=== PATIENT | female | born 1950 | race Caucasian/White ===

== ENCOUNTER → 2016-09-17 | Outpatient (CLI) | payer MEDICARE, OTHER ==
[~2016-09-17] MED LIST: /TIOT18INH INH; ENTOCORT EC; KLON0.5T OR; KLONOPIN PO; KLOR10TA OR; PAXI40TA OR; POTASSIUM PO; REME15TA OR
--- NOTE | 2016-09-17 11:42 | REP ---
History of tobacco abuse. Comparison standard noncontrast enhanced low dose CT screening of the lungs was obtained. There are no priors for comparison. The lung wells are hyperexpanded. Biapical curvilinear densities are present. Tiny cystic air spaces are seen scattered throughout the lung wells with apical predominance. In the lateral periphery of the right upper lobe, there is a vague 3 mm sized nodular density. There is bilateral basilar cylindrical bronchiectasis. Mild apical cylindrical bronchiectatic change is also suspected. IMPRESSION: 1. Tiny right upper lobe nodule as described above. According to the revised Fleischner Society criteria, this represents a category 2 lesion and one year followup low dose screening CT of the lungs is recommended. 2. There is evidence of emphysematous change and bronchiectasis as described above. Signed by Augustus Zaldivar DO 09/17/2016 11:51 A
== END ==
LOC: M RAD 10:34
PROVIDERS: ATTEND Internal Medicine Pulmonary Disease
DX: J43.2 Centrilobular emphysema (principal); Z87.891 Personal history of nicotine dependence

== ENCOUNTER → 2016-11-06 | Outpatient (REF) | payer MEDICARE, OTHER ==
[2016-11-06 16:30] LABS: CALCIUM OXALATE CRYSTALS SMALL
== END ==
LOC: M LAB REF 16:09
PROVIDERS: ATTEND Nurse Practitioner Family
DX: N39.0 Urinary tract infection, site not specified (principal)

== ENCOUNTER → 2017-08-24 | Outpatient (CLI) | payer MEDICARE, OTHER | LOC: M RAD 09:05 | DX: Z12.2 Encounter for screening for malignant neoplasm of respiratory organs (principal); R91.8 Other nonspecific abnormal finding of lung field; J43.2 Centrilobular emphysema; Z87.891 Personal history of nicotine dependence | CPT/HCPCS: G0297 ==

== ENCOUNTER 2017-11-15 09:00 | Day surgery (SDC) | payer MEDICARE, OTHER ==
[2017-11-15] MEDS: NS 1,000 ML IV (09:14)
[2017-11-15] MEDS ORDERED: fentaNYL 100 MCG/2 ML INJECTION (J3010) As Ordered (09:22)
[2017-11-15] MEDS ORDERED: LIDOCAINE 2% INJ 100 MG/5 ML SDV (FOR ANES.) As Ordered (09:27)
[2017-11-15] MEDS ORDERED: PROPOFOL 200 MG/20 ML VIAL As Ordered (09:27)
== END 2017-11-15 10:49 | disposition home or self-care (01) ==
LOC: M OPP 09:00
DX: R19.7 Diarrhea, unspecified (principal); Z86.010 Personal history of colon polyps; K55.20 Angiodysplasia of colon without hemorrhage; K64.0 First degree hemorrhoids; K57.30 Diverticulosis of large intestine without perforation or abscess without bleeding; R12 Heartburn; K22.8 Other specified diseases of esophagus; K44.9 Diaphragmatic hernia without obstruction or gangrene; K31.7 Polyp of stomach and duodenum; I35.9 Nonrheumatic aortic valve disorder, unspecified; K58.9 Irritable bowel syndrome, unspecified; K62.5 Hemorrhage of anus and rectum; K21.9 Gastro-esophageal reflux disease without esophagitis; D50.9 Iron deficiency anemia, unspecified; R06.02 Shortness of breath; M19.90 Unspecified osteoarthritis, unspecified site; F32.9 Major depressive disorder, single episode, unspecified; Z86.69 Personal history of other diseases of the nervous system and sense organs; J44.9 Chronic obstructive pulmonary disease, unspecified; Z98.1 Arthrodesis status; Z95.2 Presence of prosthetic heart valve; Z87.891 Personal history of nicotine dependence; Z88.5 Allergy status to narcotic agent; Z79.82 Long term (current) use of aspirin; Z79.899 Other long term (current) drug therapy
CPT/HCPCS: 45380

== ENCOUNTER → 2018-02-07 | Outpatient (CLI) | payer MEDICARE, OTHER | LOC: M RAD 09:33 | DX: Z12.2 Encounter for screening for malignant neoplasm of respiratory organs (principal); Z87.891 Personal history of nicotine dependence; J43.2 Centrilobular emphysema; J84.10 Pulmonary fibrosis, unspecified | CPT/HCPCS: G0297 ==

== ENCOUNTER → 2018-07-22 | Outpatient (REF) | payer MEDICARE, OTHER ==
[~2018-07-22] MED LIST changes: +ASPI1TAB PO; +CALC1TAB40 PO; +CALC600T57 PO; +FISH5CAP PO; +KLON0.5T PO; +OMEP40CA2 PO; +PARO30TA PO; +POTA10TA16 PO; +PROAAER10 INH; +PROL60SO SC; +SPIR1CAP INH; +VITA100T20 PO; +VITA500046 PO; +vitamin D IM
== END ==
LOC: M LAB REF 15:17
PROVIDERS: ATTEND Physician Assistant
DX: N39.0 Urinary tract infection, site not specified (principal)

== ENCOUNTER → 2018-11-29 | Outpatient (CLI) | payer MEDICARE, OTHER ==
[~2018-11-29] MED LIST changes: -/TIOT18INH INH; -ASPI1TAB PO; +ASPI81TA26 PO; -VITA100T20 PO; +VITA100T51 PO
[2018-11-29 10:46] LABS: BASO % 0.9 % (0.0-1.0); EOS % 0.9 % (0.0-3.0); HEMATOCRIT 33.7 % (36.0-47.0); HEMOGLOBIN 10.2 g/dl (12.0-15.5); LYMPH # 0.8 10^3/uL (1.5-4.5); LYMPH % 25.8 % (24.0-44.0); MEAN CORPUSCULAR HEMOGLOBIN 26.8 pg (27.0-33.0); MEAN CORPUSCULAR HGB CONC 30.3 g/dl (32.0-36.5); MEAN CORPUSCULAR VOLUME 88.7 fl (80.0-96.0); MONO # 0.3 10^3/uL (0.0-0.8); MONO % 8.5 % (0.0-5.0); NEUTROPHILS % 63.6 % (36.0-66.0); PLATELET COUNT, AUTOMATED 192 10^3/uL (150-450); WHITE BLOOD COUNT 3.2 10^3/uL (4.0-10.0)
[2018-11-29 11:14] LABS: ALBUMIN 3.2 GM/DL (3.2-5.2); BILIRUBIN,TOTAL 0.2 MG/DL (0.2-1.0); CREATININE FOR GFR 1.02 MG/DL (0.55-1.30); GLOMERULAR FILTRATION RATE 57.4 (>45); POTASSIUM SERUM 4.2 MEQ/L (3.5-5.1); TOTAL PROTEIN 6.4 GM/DL (6.4-8.2)
== END ==
LOC: M LAB 10:15
PROVIDERS: ATTEND Family Medicine
DX: D72.819 Decreased white blood cell count, unspecified (principal); D64.9 Anemia, unspecified

== ENCOUNTER → 2019-02-21 | Outpatient (CLI) | payer MEDICARE, OTHER ==
--- NOTE | 2019-02-21 10:54 | REP ---
LOW DOSE LUNG SCREENING CT: Low dose lung screening CT exam is accomplished in the axial plane and compared to prior study of 02/07/2018. Once again there are scattered tiny calcified granulomas bilaterally. No suspicious nodular opacity is seen. There is stable biapical pleural and parenchymal scarring. No infiltrate is seen in either lung. The heart is not enlarged. There is calcification of the thoracic aorta. No mediastinal contour abnormality is seen. IMPRESSION: Stable chronic scarring and tiny bilateral calcified granulomas. Lung-RADS category [address] Recommend followup in 1 year. Electronically Signed by Rodolfo Briggs MD 02/21/2019 07:33 P
== END ==
LOC: M RAD 08:14
PROVIDERS: ATTEND Internal Medicine Pulmonary Disease
DX: F17.210 Nicotine dependence, cigarettes, uncomplicated (principal); R91.8 Other nonspecific abnormal finding of lung field

== ENCOUNTER → 2019-04-01 | Outpatient (REF) | payer MEDICARE, OTHER | LOC: M LAB REF 09:08 | PROVIDERS: ATTEND Physician Assistant | DX: N39.0 Urinary tract infection, site not specified (principal) ==

== ENCOUNTER → 2020-02-14 | Outpatient (CLI) | payer MEDICARE, OTHER ==
[~2020-02-14] MED LIST changes: -OMEP40CA2 PO; +OMEP40CA97 PO; -PARO30TA PO; +PARO30TA65 PO
--- NOTE | 2020-04-04 14:07 | REP ---
LOW-DOSE LUNG SCREENING CHEST CT TECHNIQUE: The study is performed without intravenous (IV) contrast. The images are presented at lung windowing only. COMPARISON: Low-dose lung CT scans dated 02/07/2018 and 02/21/2019. FINDINGS: There is a new 10-mm lung nodule anteriorly in the medial segment of the right middle lobe on image 66 today, not present previously. There are no other new lung nodules or masses. There are no infiltrates or pleural effusion. There are a few scattered tiny calcified granulomas as previously. The aortic valve has been replaced. This is unchanged from the prior studies. Cardiac size is normal. IMPRESSION: Category 4A low-dose lung screening CT of the chest. The probability of malignancy is 5% to 15%. I would recommend follow-up PET scan for further evaluation. MTDD
== END ==
LOC: M RAD 10:00
PROVIDERS: ATTEND Internal Medicine Pulmonary Disease
DX: Z12.2 Encounter for screening for malignant neoplasm of respiratory organs (principal); F17.218 Nicotine dependence, cigarettes, with other nicotine-induced disorders

== ENCOUNTER → 2020-02-27 | Outpatient (CLI) | payer MEDICARE, OTHER ==
--- NOTE | 2020-04-09 07:22 | REP ---
WHOLE BODY PET CT SCAN FOR EVALUATION OF A SINGLE PULMONARY NODULE IDENTIFIED ON A RECENT LOW-DOSE LUNG SCREENING CHEST CT COMPARISON: There are no comparison PET scans. Whole body imaging is performed from the skull base to the upper thighs. NECK AND SUPRACLAVICULAR AREAS: There are no hypermetabolic foci. CHEST: The lung nodule identified anteriorly in the right lung on the recent low-dose lung screening chest CT is no longer identified on the CT accompanying the PET scan today. This may have represented a transient atelectasis. There is no hypermetabolic focus anteriorly in the right lung or elsewhere in the right or left lung parenchyma. There is a faintly visible uptake focus in the mid-sternum with a maximum standard uptake value of 2.4, non-hypermetabolic. I note that the patient has sternotomy wires. This uptake may be slight inflammation secondary to the sternotomy wires or slight instability of the sternotomy.. ABDOMEN, PELVIS, AND UPPER THIGHS: There are no hypermetabolic foci. IMPRESSION: There are no hypermetabolic foci. The lung nodule identified anteriorly in the right lung on the CT scan of 02/14/2020, is no longer present on the CT scan accordingly the PET scan today; therefore, this may have been transient atelectasis. There is a faintly visible focus of uptake in the sternum adjacent to a sternotomy wire, non-hypermetabolic, possibly secondary to mild inflammation possibly from the sternotomy wires or from slight instability of the sternotomy incision in this location. There are no other hypermetabolic foci. The study is performed with 8.48 mCi of F18 FDG. MTDD
== END ==
LOC: M PLARAD 11:00
PROVIDERS: ATTEND Internal Medicine Pulmonary Disease
DX: R91.1 Solitary pulmonary nodule (principal)
CPT/HCPCS: 78815; A9552

== ENCOUNTER → 2020-05-02 | Outpatient (REF) | payer MEDICARE, OTHER | LOC: M WUC 09:47 | PROVIDERS: ATTEND Physician Assistant | DX: N39.0 Urinary tract infection, site not specified (principal) ==

== ENCOUNTER → 2020-05-06 | Outpatient (REF) | payer MEDICARE, OTHER | LOC: M LAB REF 14:44 | PROVIDERS: ATTEND Physician Assistant | DX: R30.0 Dysuria (principal) ==

== ENCOUNTER → 2021-02-27 | Outpatient (CLI) | payer MEDICARE, OTHER ==
[~2021-02-27] MED LIST changes: +OMEP40CA4 PO; -OMEP40CA97 PO
--- NOTE | 2021-02-27 08:24 | REP ---
INDICATION: NICOTINE DEPENDENCE. COMPARISON: 02/14/2020 TECHNIQUE: Low-dose nonenhanced chest CT FINDINGS: Small scattered calcified granulomas in both lungs. A nodule in the medial segment of the right middle lobe noted on the previous study is no longer present. No noncalcified nodules are present at this time. The lungs are emphysematous. Postoperative changes noted after cardiac surgery. IMPRESSION: A nodule noted on the previous study in the right middle lobe is no longer present. No suspicious nodules are present at this time. Calcified granulomas as previously. Lung rads 2: Benign. One year follow-up. <Electronically signed by Ap Simpson > 02/27/21 [id number]
== END ==
LOC: M RAD 07:58
PROVIDERS: ATTEND Internal Medicine Pulmonary Disease
DX: Z87.891 Personal history of nicotine dependence (principal)

== ENCOUNTER → 2022-03-06 | Outpatient (CLI) | payer MEDICARE, OTHER ==
[~2022-03-06] MED LIST changes: +POTA-149 PO; -POTA10TA16 PO
== END ==
LOC: M RAD 13:37
PROVIDERS: ATTEND Internal Medicine Pulmonary Disease
DX: Z87.891 Personal history of nicotine dependence (principal)

== ENCOUNTER 2022-12-30 08:56 | Day surgery (SDC) | payer MEDICARE, OTHER ==
[~2022-12-30] VITALS: Ht 160 cm; Wt 41.5 kg
[~2022-12-30 08:56] MED LIST changes: +ANOR1AER INH; +CITA20TA6 PO; +CYAN500T14 PO; +KP F1200 PO; +MIRT1TAB15 PO
[2022-12-30] MEDS ORDERED: propofoL 200 MG/20 ML VIAL As Ordered ONE (09:24)
[2022-12-30] MEDS ORDERED: LIDOCAINE 2% 100MG/5ML SDV (FOR ANES.) As Ordered ONE (09:25)
[2022-12-30] MEDS: NS 1,000 ML IV ONE (09:26)
[2022-12-30 11:01] VITALS: TEMP 97.7
[2022-12-30 11:23] VITALS: BP 98/54; O2SAT 99
== END 2022-12-30 11:32 | disposition home or self-care (01) ==
LOC: M OPP 08:56
PROVIDERS: ATTEND Internal Medicine Gastroenterology
DX: D12.3 Benign neoplasm of transverse colon (principal); K57.30 Diverticulosis of large intestine without perforation or abscess without bleeding; K64.0 First degree hemorrhoids; Z86.010 Personal history of colon polyps; K44.9 Diaphragmatic hernia without obstruction or gangrene; R12 Heartburn; K22.70 Barrett's esophagus without dysplasia

== ENCOUNTER → 2024-06-21 | Outpatient (CLI) | payer MEDICARE, OTHER ==
[~2024-06-21] MED LIST changes: -KLON0.5T PO; +KLON0.5T8 PO
== END ==
LOC: M RAD 09:16
PROVIDERS: ATTEND Internal Medicine Pulmonary Disease
DX: Z87.891 Personal history of nicotine dependence (principal)

== ENCOUNTER → 2024-07-27 | Outpatient (CLI) | payer MEDICARE, OTHER | LOC: M WUC 08:34 | PROVIDERS: ATTEND Student in an Organized Health Care Education/Training Program | DX: M25.551 Pain in right hip (principal); M25.561 Pain in right knee ==

== ENCOUNTER 2024-11-08 09:17 | Inpatient (IN) | payer MEDICARE, OTHER ==
[~2024-11-08] VITALS: Ht 160 cm; Wt 42.0 kg
[~2024-11-08 09:17] MED LIST changes: +DENO60SY2 SC; -PROL60SO SC
[2024-11-08] MEDS ORDERED: POTA1TAB23 (09:30)
[2024-11-08] MEDS: MORPHINE 2 MG/ML 1ML VIAL IV PRN (10:45)
[2024-11-08 10:52] LABS: BASO % 0.3 % (0.0-1.0); HEMATOCRIT 35.4 % (36.0-47.0); HEMOGLOBIN 11.3 g/dl (12.0-15.5); LYMPH # 0.4 10^3/uL (1.5-5.0); LYMPH % 6.4 % (24.0-44.0); MEAN CORPUSCULAR HEMOGLOBIN 32.5 pg (27.0-33.0); MEAN CORPUSCULAR HGB CONC 31.9 g/dl (32.0-36.5); MEAN CORPUSCULAR VOLUME 101.7 fl (80.0-96.0); MONO # 0.4 10^3/uL (0.0-0.8); MONO % 6.4 % (2.0-8.0); NEUTROPHILS # 5.1 10^3/uL (1.5-8.5); NEUTROPHILS % 86.6 % (36.0-66.0); PLATELET COUNT, AUTOMATED 176 10^3/uL (150-450); RED BLOOD COUNT 3.48 10^6/uL (4.00-5.40); WHITE BLOOD COUNT 5.9 10^3/uL (4.0-10.0)
[2024-11-08 11:40] LABS: INR 1.01; PROTHROMBIN TIME 13.6 SECONDS (12.5-14.5)
[2024-11-08 12:46] LABS: CALCIUM LEVEL 8.2 MG/DL (8.3-10.6); CREATININE FOR GFR 0.89 MG/DL (0.55-1.30); POTASSIUM SERUM 3.5 MMOL/L (3.5-5.1)
[2024-11-08] MEDS ORDERED: POTA-298 PO (14:28)
[2024-11-08] MEDS ORDERED: CITA40TA6 PO (14:28)
[2024-11-08] MEDS ORDERED: HOME MED LIST COMPLETE! XX SCH (14:30)
[2024-11-08] MEDS: MORPHINE 4 MG/ML 1ML VIAL IV PRN (14:34)
[2024-11-08] MEDS ORDERED: MORPHINE 4 MG/ML 1ML VIAL IV PRN (14:50)
[2024-11-08] MEDS ORDERED: MORPHINE 2 MG/ML 1ML VIAL IV PRN (14:50)
[2024-11-08 16:30] VITALS: BP 119/67; TEMP 97.7; O2SAT 96
[2024-11-08] MEDS ORDERED: oxyCODONE 5MG TAB PO PRN (16:50)
[2024-11-08] MEDS: clonazePAM 0.5 MG TAB PO SCH (16:59)
[2024-11-08] MEDS: oxyCODONE 5MG TAB PO PRN (17:01)
[2024-11-08 17:13] LABS: INR 0.98; PARTIAL THROMBOPLASTIN TIME 29.7 SECONDS (24.8-34.2); PROTHROMBIN TIME 13.3 SECONDS (12.5-14.5)
[2024-11-08 17:23] LABS: ALBUMIN 2.5 G/DL (3.2-5.2); BILIRUBIN,DIRECT 0.1 MG/DL (<0.4); BILIRUBIN,TOTAL 0.4 MG/DL (0.3-1.2); TOTAL PROTEIN 5.2 G/DL (5.7-8.2)
[2024-11-08] MEDS: FORMOTEROL FUMARATE 20 MCG/2 ML INHALATION SOLUTION (PERFOROMIST) INH SCH (20:01)
[2024-11-08 20:06] VITALS: BP 88/58; TEMP 97.9; O2SAT 98
[2024-11-08 20:18] VITALS: BP 102/58
[2024-11-08] MEDS: PANTOPRAZOLE 40MG VIAL IV SCH (21:07)
[2024-11-08] MEDS: SENNA 8.6 MG TAB (SENOKOT) PO SCH (21:07)
[2024-11-08] MEDS: DOCUSATE SODIUM 100MG CAPSULE PO SCH (21:07)
[2024-11-08] MEDS: MIRTAZAPINE 15 MG TAB PO SCH (21:08)
[2024-11-08] MEDS: CitaloPRAM (CeleXA) 20 MG TAB PO SCH (21:08)
[2024-11-08] MEDS: POTASSIUM CHLORIDE 10MEQ SR TABLET PO SCH (21:08)
[2024-11-09 04:13] VITALS: BP 116/67; TEMP 97.2; O2SAT 95
[2024-11-09 06:54] LABS: HEMATOCRIT 34.7 % (36.0-47.0); HEMOGLOBIN 11.1 g/dl (12.0-15.5); MEAN CORPUSCULAR HEMOGLOBIN 32.6 pg (27.0-33.0); MEAN CORPUSCULAR VOLUME 101.8 fl (80.0-96.0); PLATELET COUNT, AUTOMATED 154 10^3/uL (150-450); RED BLOOD COUNT 3.41 10^6/uL (4.00-5.40); WHITE BLOOD COUNT 5.4 10^3/uL (4.0-10.0)
[2024-11-09 07:23] LABS: ALBUMIN 2.4 G/DL (3.2-5.2); BILIRUBIN,TOTAL 0.3 MG/DL (0.3-1.2); CALCIUM LEVEL 10.1 MG/DL (8.3-10.6); CREATININE FOR GFR 0.88 MG/DL (0.55-1.30); GLOMERULAR FILTRATION RATE 68.9 (>39); TOTAL PROTEIN 5.3 G/DL (5.7-8.2)
[2024-11-09] MEDS: TIOTROPIUM BROM 2.5MCG/ACTUATION 4GM INH IH SCH (08:03)
[2024-11-09] MEDS: ACETAMINOPHEN 325 MG TAB PO PRN (09:34)
[2024-11-09 12:00] VITALS: BP_SYST 100; BP_SYST 89; BP_DIAS 58; BP_DIAS 62; TEMP 97.5; O2SAT 90
[2024-11-09] MEDS ORDERED: ACET32TAB PO (12:58)
[2024-11-09] MEDS ORDERED: COLA100C5 PO (12:59)
[2024-11-09] MEDS ORDERED: OXYC-517 PO (12:59)
[2024-11-09] MEDS ORDERED: SENN-188 PO (12:59)
== END 2024-11-09 15:50 | DRG 536 ==
LOC: EDBD 09:17 → M ED 09:17 → M ED INP 14:46 → M MS5PR 16:10
PROVIDERS: ADMIT Internal Medicine; ATTEND Internal Medicine
DX: S72.115A Nondisplaced fracture of greater trochanter of left femur, initial encounter for closed fracture (principal); J44.9 Chronic obstructive pulmonary disease, unspecified; K58.9 Irritable bowel syndrome, unspecified; M19.90 Unspecified osteoarthritis, unspecified site; D50.9 Iron deficiency anemia, unspecified; E87.6 Hypokalemia; F41.9 Anxiety disorder, unspecified; K21.9 Gastro-esophageal reflux disease without esophagitis; Z79.82 Long term (current) use of aspirin; Z79.899 Other long term (current) drug therapy; Z88.5 Allergy status to narcotic agent; Z87.891 Personal history of nicotine dependence; Z95.2 Presence of prosthetic heart valve; Z86.73 Personal history of transient ischemic attack (TIA), and cerebral infarction without residual deficits; Z90.79 Acquired absence of other genital organ(s); M25.562 Pain in left knee; W01.0XXA Fall on same level from slipping, tripping and stumbling without subsequent striking against object, initial encounter; Y92.481 Parking lot as the place of occurrence of the external cause; R29.6 Repeated falls

== ENCOUNTER 2024-11-09 14:51 | Inpatient (IN) | payer MEDICARE, OTHER ==
[~2024-11-09] VITALS: Ht 160 cm; Wt 39.9 kg
[~2024-11-09 14:51] MED LIST changes: +ACET32TAB PO; +CITA40TA6 PO; +COLA100C5 PO; +OXYC-517 PO; +POTA-298 PO; +POTA1TAB23; +SENN-188 PO
[2024-11-09] MEDS ORDERED: BISACODYL 10MG SUPP PR PRN (15:45)
[2024-11-09] MEDS ORDERED: BISACODYL 5MG TAB PO PRN (15:45)
[2024-11-09] MEDS ORDERED: FLEET ENEMA PR PRN (15:45)
[2024-11-09] MEDS ORDERED: MAALOX 30 ML SUSP *UDC PO PRN (15:45)
[2024-11-09] MEDS ORDERED: MOM 30ML SUSPENSION UDC PO PRN (15:45)
[2024-11-09] MEDS ORDERED: MIDODRINE 5 MG TAB PO PRN (15:55)
[2024-11-09] MEDS ORDERED: DICLOFENAC EPOLAMINE 1.3% PATCH TOP PRN (15:55)
[2024-11-09 16:09] VITALS: BP 84/52; TEMP 98.4; O2SAT 91
[2024-11-09 19:40] VITALS: BP 84/55; TEMP 98.6; O2SAT 94
[2024-11-09 20:33] VITALS: BP 94/52
[2024-11-09] MEDS: FORMOTEROL FUMARATE 20 MCG/2 ML INHALATION SOLUTION (PERFOROMIST) INH SCH (20:58)
[2024-11-09] MEDS: SENNA 8.6 MG TAB (SENOKOT) PO SCH (21:11)
[2024-11-09] MEDS: CALCIUM/VITAMIN D 500 MG TAB PO SCH (21:11)
[2024-11-09] MEDS: ASPIRIN 81MG ENTERIC TABLET PO SCH (21:11)
[2024-11-09] MEDS: MIRTAZAPINE 15 MG TAB PO SCH (21:12)
[2024-11-09] MEDS: HEPARIN SOD (PORCINE) 5000UNITS/ML 1ML VIAL/SYRINGE SC SCH (21:12)
[2024-11-09] MEDS: POTASSIUM CHLORIDE 10MEQ SR TABLET PO SCH (21:12)
[2024-11-09] MEDS: CitaloPRAM (CeleXA) 20 MG TAB PO SCH (21:13)
[2024-11-09] MEDS: clonazePAM 1 MG TAB PO SCH (21:14)
[2024-11-09] MEDS: OMEPRAZOLE 20MG CAP PO SCH (21:15)
[2024-11-09] MEDS: CYANOCOBALAMIN 500 MCG TAB PO SCH (21:15)
[2024-11-09] MEDS: DOCUSATE SODIUM 100MG CAPSULE PO SCH (21:15)
[2024-11-09] MEDS: PILL CUTTER 1 EACH XX PRN (21:17)
[2024-11-09] MEDS: ACETAMINOPHEN 500 MG TAB PO SCH (21:22)
[2024-11-09] MEDS: oxyCODONE 5MG TAB PO PRN (21:22)
[2024-11-10 05:27] VITALS: BP 98/58; TEMP 98.4; O2SAT 93
[2024-11-10 07:23] LABS: BASO % 0.8 % (0.0-1.0); EOS # 0.1 10^3/uL (0.0-0.5); EOS % 2.8 % (0.0-3.0); HEMATOCRIT 31.4 % (36.0-47.0); HEMOGLOBIN 10.1 g/dl (12.0-15.5); LYMPH # 0.6 10^3/uL (1.5-5.0); LYMPH % 16.4 % (24.0-44.0); MEAN CORPUSCULAR HEMOGLOBIN 32.8 pg (27.0-33.0); MEAN CORPUSCULAR HGB CONC 32.2 g/dl (32.0-36.5); MEAN CORPUSCULAR VOLUME 101.9 fl (80.0-96.0); MONO # 0.3 10^3/uL (0.0-0.8); MONO % 7.9 % (2.0-8.0); NEUTROPHILS # 2.5 10^3/uL (1.5-8.5); NEUTROPHILS % 71.8 % (36.0-66.0); PLATELET COUNT, AUTOMATED 156 10^3/uL (150-450); RED BLOOD COUNT 3.08 10^6/uL (4.00-5.40); WHITE BLOOD COUNT 3.5 10^3/uL (4.0-10.0)
[2024-11-10 07:57] LABS: ALBUMIN 2.1 G/DL (3.2-5.2); BILIRUBIN,TOTAL 0.2 MG/DL (0.3-1.2); CALCIUM LEVEL 10.1 MG/DL (8.3-10.6); CREATININE FOR GFR 0.91 MG/DL (0.55-1.30); GLOMERULAR FILTRATION RATE 66.2 (>39); POTASSIUM SERUM 4.1 MMOL/L (3.5-5.1); TOTAL PROTEIN 4.7 G/DL (5.7-8.2)
[2024-11-10 09:00] VITALS: BP 98/58; TEMP 98.4; O2SAT 93
[2024-11-10] MEDS: TIOTROPIUM BROM 2.5MCG/ACTUATION 4GM INH IH SCH (09:12)
[2024-11-10 12:00] VITALS: BP 82/53; TEMP 97.8; O2SAT 68
[2024-11-10 19:48] VITALS: BP 98/52; TEMP 97.9; O2SAT 94
[2024-11-10] MEDS: oxyCODONE 5MG TAB PO PRN (20:27)
[2024-11-11 05:20] VITALS: BP 112/70; TEMP 97.6; O2SAT 93
[2024-11-11 12:00] VITALS: BP 94/55; TEMP 99; O2SAT 95
[2024-11-11 19:28] VITALS: BP 82/51; TEMP 97.4; O2SAT 99
[2024-11-12 04:53] VITALS: BP 105/66; TEMP 97.9; O2SAT 92
[2024-11-12 12:27] VITALS: BP 95/55; TEMP 97.9; O2SAT 94
[2024-11-12 19:50] VITALS: BP 92/51; TEMP 98.8; O2SAT 98
[2024-11-13 04:00] VITALS: BP 103/70; TEMP 98.9; O2SAT 94
[2024-11-13] MEDS ORDERED: MIDODRINE 2.5 MG TAB PO PRN (12:05)
[2024-11-13 12:31] LABS: HEMATOCRIT 31.4 % (36.0-47.0); MEAN CORPUSCULAR HEMOGLOBIN 32.3 pg (27.0-33.0); MEAN CORPUSCULAR HGB CONC 31.8 g/dl (32.0-36.5); MEAN CORPUSCULAR VOLUME 101.3 fl (80.0-96.0); PLATELET COUNT, AUTOMATED 190 10^3/uL (150-450); WHITE BLOOD COUNT 4.4 10^3/uL (4.0-10.0)
[2024-11-13 12:38] VITALS: BP 85/53; TEMP 98.8; O2SAT 91
[2024-11-13] MEDS: MIDODRINE 2.5 MG TAB PO ONE (12:45)
[2024-11-13 20:00] VITALS: BP 98/56; TEMP 97.8; O2SAT 92
[2024-11-14 05:43] VITALS: BP 105/67; TEMP 97.8; O2SAT 94
[2024-11-14] MEDS: MIDODRINE 2.5 MG TAB PO SCH (05:50)
[2024-11-14 12:05] VITALS: BP 116/73; TEMP 97.6; O2SAT 97
[2024-11-14 12:33] VITALS: BP 99/53
[2024-11-14 20:00] VITALS: BP 95/53; TEMP 97.2; O2SAT 91
[2024-11-14] MEDS: SENNA 8.6 MG TAB (SENOKOT) PO SCH (20:15)
[2024-11-15 05:54] VITALS: BP 106/58; TEMP 98.7; O2SAT 91
[2024-11-15 07:30] VITALS: BP 83/53
[2024-11-15] MEDS: MIDODRINE 2.5 MG TAB PO SCH (07:35)
[2024-11-15 09:58] VITALS: BP 82/50
[2024-11-15 12:01] VITALS: BP 101/59; TEMP 97.3; O2SAT 94
[2024-11-15 20:00] VITALS: BP 94/51; TEMP 98.5; O2SAT 98
[2024-11-16 05:30] VITALS: BP 110/61; TEMP 99.7; O2SAT 94
[2024-11-16 12:00] VITALS: BP 104/66; TEMP 98.1; O2SAT 100
[2024-11-16] MEDS ORDERED: MIDO2.5T3 PO (14:19)
[2024-11-16] MEDS ORDERED: ACET-683 PO (14:19)
[2024-11-16] MEDS ORDERED: SENN-188 PO (14:19)
[2024-11-16] MEDS ORDERED: OXYC-517 PO (14:19)
[2024-11-16 20:00] VITALS: BP 99/55; TEMP 98.1; O2SAT 98
[2024-11-17 05:00] VITALS: BP 111/63; TEMP 97.2; O2SAT 96
== END 2024-11-17 12:13 | disposition home health service (06) | DRG 559 ==
LOC: M PM&R 15:57
PROVIDERS: ADMIT Physical Medicine & Rehabilitation; ATTEND Physical Medicine & Rehabilitation
DX: S72.115D Nondisplaced fracture of greater trochanter of left femur, subsequent encounter for closed fracture with routine healing (principal); E43 Unspecified severe protein-calorie malnutrition; Z68.1 Body mass index [BMI] 19.9 or less, adult; J44.9 Chronic obstructive pulmonary disease, unspecified; K58.1 Irritable bowel syndrome with constipation; M19.90 Unspecified osteoarthritis, unspecified site; D50.9 Iron deficiency anemia, unspecified; E87.6 Hypokalemia; F41.9 Anxiety disorder, unspecified; K21.9 Gastro-esophageal reflux disease without esophagitis; I95.2 Hypotension due to drugs; M25.462 Effusion, left knee; T40.2X5A Adverse effect of other opioids, initial encounter; Z74.1 Need for assistance with personal care; Z74.09 Other reduced mobility; Z86.73 Personal history of transient ischemic attack (TIA), and cerebral infarction without residual deficits; Z87.891 Personal history of nicotine dependence; Z79.82 Long term (current) use of aspirin; Z79.899 Other long term (current) drug therapy; Z88.5 Allergy status to narcotic agent

== ENCOUNTER → 2024-11-28 | Outpatient (CLI) | payer MEDICARE, OTHER ==
[~2024-11-28] MED LIST changes: +ACET-683 PO; +MIDO2.5T3 PO
== END ==
LOC: M SOG 07:12
PROVIDERS: ATTEND Physician Assistant
DX: M25.552 Pain in left hip (principal)

== ENCOUNTER → 2025-01-31 | Outpatient (CLI) | payer MEDICARE, OTHER | LOC: M RAD 09:33 | PROVIDERS: ATTEND Physician Assistant | DX: R22.42 Localized swelling, mass and lump, left lower limb (principal) ==

== ENCOUNTER → 2025-01-31 | Outpatient (CLI) | payer MEDICARE, OTHER | LOC: M SOG 06:55 | PROVIDERS: ATTEND Physician Assistant | DX: Z47.89 Encounter for other orthopedic aftercare (principal); M25.552 Pain in left hip; M79.672 Pain in left foot; R22.42 Localized swelling, mass and lump, left lower limb ==

== ENCOUNTER 2025-02-21 20:05 | Inpatient (IN) | payer MEDICARE, OTHER ==
[~2025-02-21] VITALS: Ht 162.6 cm; Wt 45.5 kg
[2025-02-21 21:54] LABS: BASO # 0.0 10^3/uL (0.0-0.2); BASO % 0.4 % (0.0-1.0); EOS # 0.0 10^3/uL (0.0-0.5); EOS % 0.0 % (0.0-3.0); LYMPH # 0.6 10^3/uL (1.5-5.0); LYMPH % 10.1 % (24.0-44.0); MONO # 0.3 10^3/uL (0.0-0.8); MONO % 6.1 % (2.0-8.0); NEUTROPHILS # 4.5 10^3/uL (1.5-8.5); NEUTROPHILS % 83.0 % (36.0-66.0); PLATELET COUNT, AUTOMATED 184 10^3/uL (150-450)
[2025-02-21 22:15] LABS: INR 1.08
[2025-02-21 23:04] LABS: ALT/SGPT 29.0 U/L (7.0-40); AST/SGOT 44.0 U/L (<34); CALCIUM LEVEL 9.6 MG/DL (8.3-10.6); CARBON DIOXIDE LEVEL 23.0 MMOL/L (20-31); CHLORIDE LEVEL 97.0 MMOL/L (98-107); CREATININE FOR GFR 0.76 MG/DL (0.55-1.30); ETHYL ALCOHOL (ETHANOL) 0.157 % (0.000-0.010); GLOMERULAR FILTRATION RATE 82.2 (>39); POTASSIUM SERUM 3.9 MMOL/L (3.5-5.1); SODIUM LEVEL 134.0 MMOL/L (136-145)
[2025-02-22] VITALS (9 sets, daily range): BP systolic 90–117; BP diastolic 55–69; TEMP 97.3–97.9; O2SAT 94–96
[2025-02-22] MEDS ORDERED: MORPHINE 2 MG/ML 1 ML VIAL IV PRN (01:20)
[2025-02-22] MEDS: MORPHINE 4 MG/ML 1 ML VIAL IV PRN (02:43)
[2025-02-22] MEDS: NS (Normal Saline) 0.9% 1,000 ML IV SCH (02:44)
[2025-02-22] MEDS: MULTIVITAMIN -ADULT INJECTION 10 ML, THIAMINE INJection 100 MG, FOLIC ACID 1 MG in NS (... IV ONE (04:23)
[2025-02-22 06:40] LABS: BASO # 0.0 10^3/uL (0.0-0.2); BASO % 0.6 % (0.0-1.0); EOS # 0.0 10^3/uL (0.0-0.5); EOS % 0.6 % (0.0-3.0); LYMPH # 0.4 10^3/uL (1.5-5.0); LYMPH % 9.8 % (24.0-44.0); MONO # 0.3 10^3/uL (0.0-0.8); MONO % 7.3 % (2.0-8.0); NEUTROPHILS # 2.9 10^3/uL (1.5-8.5); NEUTROPHILS % 81.1 % (36.0-66.0); PLATELET COUNT, AUTOMATED 169 10^3/uL (150-450)
[2025-02-22 07:09] LABS: CALCIUM LEVEL 9.3 MG/DL (8.3-10.6); CARBON DIOXIDE LEVEL 28.0 MMOL/L (20-31); CHLORIDE LEVEL 103.0 MMOL/L (98-107); CREATININE FOR GFR 0.77 MG/DL (0.55-1.30); GLOMERULAR FILTRATION RATE 80.9 (>39); MAGNESIUM LEVEL 1.6 MG/DL (1.8-2.4); POTASSIUM SERUM 3.7 MMOL/L (3.5-5.1); SODIUM LEVEL 140.0 MMOL/L (136-145)
[2025-02-22] MEDS: PANTOPRAZOLE 40MG VIAL IV SCH (08:38)
[2025-02-22] MEDS: MAG SULF 1GM/100ML (MAG RUN) 1 GM in IV 1 EA IV SCH (09:49)
[2025-02-22] MEDS: chlordiazePOXIDE 25 MG CAP PO SCH (10:50)
[2025-02-22] MEDS: MAG SULF 1GM/100ML (MAG RUN) 1 GM in IV 1 EA IV ONE (11:17)
[2025-02-22] MEDS ORDERED: HOME MED LIST COMPLETE! XX SCH (12:15)
[2025-02-22] MEDS ORDERED: MIRT-10 PO (13:30)
[2025-02-22] MEDS ORDERED: ceFAZolin SODIUM 2 GM in DEXTROSE 5% (D5W) ADV/MINI-BAG 50 ML IV ONE (13:35)
[2025-02-22] MEDS ORDERED: clonazePAM 0.5 MG TAB PO PRN (15:05)
[2025-02-22] MEDS ORDERED: clonazePAM 0.5 MG TAB PO SCH (16:00)
[2025-02-22] MEDS: ENOXAPARIN 30 MG/0.3 ML SYRINGE (J1650 PER 10MG) SC STA (17:50)
[2025-02-22] MEDS: SYMBICORT 160/4.5MCG INHALER 6GM INH SCH (19:08)
[2025-02-22] MEDS: MIRTAZAPINE 15 MG TAB PO SCH (21:30)
[2025-02-22] MEDS: LR 1,000 ML IV ONE (21:31)
[2025-02-22] MEDS: clonazePAM 0.5 MG TAB PO SCH (21:31)
[2025-02-22] MEDS: LR 1,000 ML IV SCH (23:03)
[2025-02-23] VITALS: BP 99/65; TEMP 97.2; O2SAT 90
[2025-02-23 06:00] VITALS: BP_SYST 102; BP_DIAS 66; BP_DIAS 68; TEMP 97.3; O2SAT 95
[2025-02-23] MEDS: ceFAZolin SODIUM 2 GM in DEXTROSE 5% (D5W) ADV/MINI-BAG 50 ML IV ONE (06:00)
[2025-02-23 07:24] LABS: BASO # 0.0 10^3/uL (0.0-0.2); BASO % 0.5 % (0.0-1.0); EOS # 0.1 10^3/uL (0.0-0.5); EOS % 1.9 % (0.0-3.0); LYMPH # 0.3 10^3/uL (1.5-5.0); LYMPH % 6.1 % (24.0-44.0); MONO # 0.3 10^3/uL (0.0-0.8); MONO % 6.1 % (2.0-8.0); NEUTROPHILS # 3.6 10^3/uL (1.5-8.5); NEUTROPHILS % 84.9 % (36.0-66.0); PLATELET COUNT, AUTOMATED 145 10^3/uL (150-450)
[2025-02-23 07:47] LABS: ETHYL ALCOHOL (ETHANOL) < 0.003 % (0.000-0.010)
[2025-02-23 07:49] LABS: CALCIUM LEVEL 9.0 MG/DL (8.3-10.6); CARBON DIOXIDE LEVEL 28 MMOL/L (20-31); CHLORIDE LEVEL 104 MMOL/L (98-107); CREATININE FOR GFR 0.76 MG/DL (0.55-1.30); GLOMERULAR FILTRATION RATE 82.2 (>39); MAGNESIUM LEVEL 1.8 MG/DL (1.8-2.4); POTASSIUM SERUM 3.7 MMOL/L (3.5-5.1); SODIUM LEVEL 141 MMOL/L (136-145)
[2025-02-23 12:00] VITALS: BP 99/67; TEMP 97.4; O2SAT 95
[2025-02-23 14:00] VITALS: BP 104/66
[2025-02-23 20:00] VITALS: BP 93/57; TEMP 97.5; O2SAT 96
[2025-02-23 22:00] VITALS: BP 102/68
[2025-02-24] VITALS (14 sets, daily range): BP systolic 96–143; BP diastolic 58–77; TEMP 97–97.5; O2SAT 90–96
[2025-02-24] MEDS ORDERED: MIDAZOLAM INJ 2 MG/2 ML VIAL As Ordered ONE (07:26)
[2025-02-24] MEDS ORDERED: HYDROmorphone HCL 2 MG/ML 1 ML VIAL As Ordered ONE (07:26)
[2025-02-24] MEDS ORDERED: dexAMETHasone 4 MG/ML 1 ML VIAL As Ordered ONE (07:26)
[2025-02-24] MEDS ORDERED: ONDANSETRON 4MG 2ML VIAL As Ordered ONE (07:26)
[2025-02-24] MEDS ORDERED: dexmedeTOMIDine (4 MCG/ML) 200 MCG/50 ML BTL As Ordered ONE (07:26)
[2025-02-24] MEDS ORDERED: SUGAMMADEX SODIUM 500 MG/5 ML VIAL As Ordered ONE (07:26)
[2025-02-24] MEDS ORDERED: ROCURONIUM BROMIDE 50MG/5ML VIAL As Ordered ONE (07:26)
[2025-02-24] MEDS ORDERED: LIDOCAINE 2% 100 MG/5 ML SDV (FOR ANES.) As Ordered ONE (07:26)
[2025-02-24] MEDS ORDERED: ACETAMINOPHEN 1000MG/100ML IV BAG As Ordered ONE (07:27)
[2025-02-24 07:30] LABS: BASO # 0.0 10^3/uL (0.0-0.2); BASO % 0.2 % (0.0-1.0); EOS # 0.2 10^3/uL (0.0-0.5); EOS % 3.6 % (0.0-3.0); LYMPH # 0.4 10^3/uL (1.5-5.0); LYMPH % 6.7 % (24.0-44.0); MONO # 0.4 10^3/uL (0.0-0.8); MONO % 7.6 % (2.0-8.0); NEUTROPHILS # 4.3 10^3/uL (1.5-8.5); NEUTROPHILS % 81.5 % (36.0-66.0); PLATELET COUNT, AUTOMATED 159 10^3/uL (150-450)
[2025-02-24 07:56] LABS: CALCIUM LEVEL 9.4 MG/DL (8.3-10.6); CARBON DIOXIDE LEVEL 31.0 MMOL/L (20-31); CHLORIDE LEVEL 103.0 MMOL/L (98-107); CREATININE FOR GFR 0.72 MG/DL (0.55-1.30); GLOMERULAR FILTRATION RATE 87.7 (>39); POTASSIUM SERUM 3.7 MMOL/L (3.5-5.1); SODIUM LEVEL 143.0 MMOL/L (136-145)
[2025-02-24 08:24] LABS: MAGNESIUM LEVEL 1.6 MG/DL (1.8-2.4)
[2025-02-24] MEDS: VANCOMYCIN 500MG/10ML VIAL As Ordered ONE (08:27)
[2025-02-24] MEDS: ceFAZolin SODIUM 2 GM in DEXTROSE 5% (D5W) ADV/MINI-BAG 50 ML IV ONE (09:15)
[2025-02-24] MEDS: TRANEXAMIC ACID 100 MG/ML 10ML VIAL As Ordered ONE (09:20)
[2025-02-24] MEDS ORDERED: PHENYLephrine 500MCG 5ML (100MCG/ML) SYRINGE As Ordered ONE (09:52)
[2025-02-24] MEDS ORDERED: SENNA 8.6 MG TAB PO PRN (10:45)
[2025-02-24] MEDS: LR 1,000 ML IV SCH (10:55)
[2025-02-24 16:28] LABS: ABG BASE EXCESS -0.8 (-2.0-2.0); ABG HCO3 25.7 MMOL/L (22.0-26.0); ABG O2 SATURATION 98.1 % (95.0-99.0); ABG PARTIAL PRESSURE CO2 51.4 mmHg (35.0-45.0); ABG PARTIAL PRESSURE O2 120.7 mmHg (75.0-100.0); ABG STANDARD HCO3 23.8 MMOL/L. (22.0-26.0); ABG TOTAL CO2 27.2 MMOL/L (23.0-31.0); ABG pH (ARTERIAL) 7.316 UNITS (7.350-7.450)
[2025-02-24] MEDS: ceFAZolin SODIUM 2 GM in DEXTROSE 5% (D5W) ADV/MINI-BAG 50 ML IV SCH (17:19)
[2025-02-24] MEDS ORDERED: ASPIRIN 81 MG ENTERIC TABLET PO SCH (21:00)
[2025-02-24] MEDS: DOCUSATE SODIUM 100 MG CAPSULE PO SCH (21:00)
[2025-02-24] MEDS ORDERED: ALBUTEROL SULFATE 2.5 MG/0.5 ML INH CONCENTRATE NEB SOLN NEB PRN (21:05)
[2025-02-24] MEDS: ASPIRIN 81 MG ENTERIC TABLET PO SCH (21:07)
[2025-02-24] MEDS: IPRATROPIUM 0.5 MG/ALBUTEROL 2.5 MG INH SOL UD 3 ML NEB SCH (21:29)
[2025-02-24] MEDS: predniSONE 20 MG TAB PO ONE (21:33)
[2025-02-25] VITALS (8 sets, daily range): BP systolic 95–114; BP diastolic 55–71; TEMP 97.3–97.7; O2SAT 90–95
[2025-02-25 00:49] LABS: ABG BASE EXCESS -0.2 (-2.0-2.0); ABG HCO3 25.4 MMOL/L (22.0-26.0); ABG O2 SATURATION 98.5 % (95.0-99.0); ABG PARTIAL PRESSURE CO2 45.5 mmHg (35.0-45.0); ABG PARTIAL PRESSURE O2 128.1 mmHg (75.0-100.0); ABG STANDARD HCO3 24.4 MMOL/L. (22.0-26.0); ABG TOTAL CO2 26.8 MMOL/L (23.0-31.0); ABG pH (ARTERIAL) 7.364 UNITS (7.350-7.450)
[2025-02-25 07:01] LABS: BASO # 0.0 10^3/uL (0.0-0.2); BASO % 0.1 % (0.0-1.0); EOS # 0.0 10^3/uL (0.0-0.5); EOS % 0.0 % (0.0-3.0); LYMPH # 0.2 10^3/uL (1.5-5.0); LYMPH % 3.1 % (24.0-44.0); MONO # 0.4 10^3/uL (0.0-0.8); MONO % 5.2 % (2.0-8.0); NEUTROPHILS # 6.4 10^3/uL (1.5-8.5); NEUTROPHILS % 91.2 % (36.0-66.0); PLATELET COUNT, AUTOMATED 182 10^3/uL (150-450)
[2025-02-25 07:24] LABS: CALCIUM LEVEL 9.4 MG/DL (8.3-10.6); CARBON DIOXIDE LEVEL 29.0 MMOL/L (20-31); CHLORIDE LEVEL 104.0 MMOL/L (98-107); CREATININE FOR GFR 0.77 MG/DL (0.55-1.30); GLOMERULAR FILTRATION RATE 80.9 (>39); MAGNESIUM LEVEL 1.6 MG/DL (1.8-2.4); POTASSIUM SERUM 4.3 MMOL/L (3.5-5.1); SODIUM LEVEL 142.0 MMOL/L (136-145)
[2025-02-25] MEDS ORDERED: predniSONE 20 MG TAB PO SCH ×2 (09:00)
[2025-02-25] MEDS ORDERED: FERROUS SULFATE 325 MG TAB PO SCH (09:00)
[2025-02-25] MEDS: ASCORBIC ACID 500 MG TAB PO SCH (10:23)
[2025-02-25] MEDS: CEFDINIR 300 MG CAP PO SCH (10:24)
[2025-02-25] MEDS: ACETAMINOPHEN 325 MG TAB PO PRN (10:25)
[2025-02-25] MEDS ORDERED: clonazePAM 0.5 MG TAB PO PRN (10:25)
[2025-02-25 10:51] LABS: VITAMIN B12 LEVEL 1581.0 PG/ML (211-911)
[2025-02-25 10:57] LABS: IRON (FE) 6.0 UG/DL (50-170); PERCENT SATURATION 2.4 % (13.2-45.0)
[2025-02-25] MEDS: MAG SULF 1GM/100ML (MAG RUN) 1 GM in IV 1 EA IV SCH (12:09)
[2025-02-25] MEDS: IPRATROPIUM 0.5 MG/ALBUTEROL 2.5 MG INH SOL UD 3 ML NEB SCH (15:25)
[2025-02-25] MEDS: ACETAMINOPHEN 500 MG TAB PO SCH (15:46)
[2025-02-25] MEDS: ENOXAPARIN 40 MG/0.4 ML SYRINGE (J1650 PER 10MG) SC SCH (21:22)
[2025-02-25] MEDS: FERROUS SULFATE 325 MG TAB PO SCH (21:24)
[2025-02-25] MEDS: ASPIRIN 81 MG ENTERIC TABLET PO SCH (21:24)
[2025-02-25] MEDS: OMEPRAZOLE 20MG CAP PO SCH (21:24)
[2025-02-26] VITALS (9 sets, daily range): BP systolic 87–100; BP diastolic 53–62; TEMP 97–97.5; O2SAT 90–98
[2025-02-26 06:36] LABS: BASO # 0.0 10^3/uL (0.0-0.2); BASO % 0.2 % (0.0-1.0); EOS # 0.1 10^3/uL (0.0-0.5); EOS % 1.0 % (0.0-3.0); LYMPH # 0.4 10^3/uL (1.5-5.0); LYMPH % 7.4 % (24.0-44.0); MONO # 0.5 10^3/uL (0.0-0.8); MONO % 8.4 % (2.0-8.0); NEUTROPHILS # 4.9 10^3/uL (1.5-8.5); NEUTROPHILS % 82.5 % (36.0-66.0); PLATELET COUNT, AUTOMATED 186 10^3/uL (150-450)
[2025-02-26 08:02] LABS: CALCIUM LEVEL 9.0 MG/DL (8.3-10.6); CARBON DIOXIDE LEVEL 32.0 MMOL/L (20-31); CHLORIDE LEVEL 105.0 MMOL/L (98-107); CREATININE FOR GFR 0.88 MG/DL (0.55-1.30); GLOMERULAR FILTRATION RATE 68.9 (>39); MAGNESIUM LEVEL 2.0 MG/DL (1.8-2.4); POTASSIUM SERUM 3.8 MMOL/L (3.5-5.1); SODIUM LEVEL 144.0 MMOL/L (136-145)
[2025-02-26] MEDS ORDERED: SYMB16INH INH (11:30)
[2025-02-26] MEDS ORDERED: ASCO50TA PO (11:30)
[2025-02-26] MEDS ORDERED: CEFD300CAP PO (11:30)
[2025-02-26] MEDS ORDERED: FERR1TAB8 PO (11:30)
[2025-02-26] MEDS ORDERED: OXYC-517 PO (11:30)
[2025-02-26] MEDS: FUROSEMIDE 40 MG/4 ML VIAL IV SCH (13:21)
== END 2025-02-26 14:00 | DRG 521 ==
LOC: M ED 20:05 → M ED INP 02-22 01:03 → M MS5PR 02-22 03:18 → M ED INP 02-24 19:25 → M MS5PR 02-24 22:48
PROVIDERS: ADMIT Student in an Organized Health Care Education/Training Program; ATTEND Internal Medicine
PROC: 0SRS0J9 Replacement of Left Hip Joint, Femoral Surface with Synthetic Substitute, Cemented, Open Approach (ICD-10-PCS; principal; 2025-02-24 08:30)
PROC: 30233N1 Transfusion of Nonautologous Red Blood Cells into Peripheral Vein, Percutaneous Approach (ICD-10-PCS; 2025-02-26)
DX: S72.092A Other fracture of head and neck of left femur, initial encounter for closed fracture (principal); J96.01 Acute respiratory failure with hypoxia; J96.02 Acute respiratory failure with hypercapnia; J44.9 Chronic obstructive pulmonary disease, unspecified; K58.9 Irritable bowel syndrome, unspecified; F50.9 Eating disorder, unspecified; M19.90 Unspecified osteoarthritis, unspecified site; S72.112D Displaced fracture of greater trochanter of left femur, subsequent encounter for closed fracture with routine healing; D50.9 Iron deficiency anemia, unspecified; F32.A Depression, unspecified; F41.9 Anxiety disorder, unspecified; D50.0 Iron deficiency anemia secondary to blood loss (chronic); E83.42 Hypomagnesemia; K21.9 Gastro-esophageal reflux disease without esophagitis; F10.20 Alcohol dependence, uncomplicated; E87.6 Hypokalemia; T42.75XA Adverse effect of unspecified antiepileptic and sedative-hypnotic drugs, initial encounter; Z95.2 Presence of prosthetic heart valve; Z79.82 Long term (current) use of aspirin; Z79.899 Other long term (current) drug therapy; Z86.73 Personal history of transient ischemic attack (TIA), and cerebral infarction without residual deficits; Z88.5 Allergy status to narcotic agent; Z87.891 Personal history of nicotine dependence; W22.09XA Striking against other stationary object, initial encounter; Y92.018 Other place in single-family (private) house as the place of occurrence of the external cause; Y93.89 Activity, other specified; Y99.8 Other external cause status

== ENCOUNTER 2025-02-26 11:52 | Inpatient (IN) | payer MEDICARE, OTHER ==
[~2025-02-26] VITALS: Ht 162.6 cm; Wt 43.1 kg
[~2025-02-26 11:52] MED LIST changes: +ASCO50TA PO; +CEFD300CAP PO; +FERR1TAB8 PO; +MIRT-10 PO; +SYMB16INH INH
[2025-02-26] MEDS ORDERED: BISACODYL 5 MG TAB PO PRN (12:15)
[2025-02-26] MEDS ORDERED: MAALOX 30 ML SUSP *UDC PO PRN (12:15)
[2025-02-26] MEDS ORDERED: BISACODYL 10 MG SUPP PR PRN (12:15)
[2025-02-26] MEDS ORDERED: MOM 30 ML SUSPENSION UDC PO PRN (12:15)
[2025-02-26] MEDS ORDERED: SIMETHICONE 80MG CHEW TAB PO PRN (12:15)
[2025-02-26] MEDS ORDERED: IPRATROPIUM 0.5 MG/ALBUTEROL 2.5 MG INH SOL UD 3 ML NEB PRN (12:15)
[2025-02-26] MEDS ORDERED: ONDANSETRON 4MG ORAL DISINTEGRATING TAB PO PRN (12:15)
[2025-02-26 14:00] VITALS: BP 109/68; TEMP 97.4; O2SAT 95
[2025-02-26] MEDS: SYMBICORT 160/4.5MCG INHALER 6GM INH SCH (19:58)
[2025-02-26 20:00] VITALS: BP 98/56; TEMP 98; O2SAT 92
[2025-02-26] MEDS: MIRTAZAPINE 15 MG TAB PO SCH (20:02)
[2025-02-26] MEDS: OMEPRAZOLE 20MG CAP PO SCH (20:03)
[2025-02-26] MEDS: ASPIRIN 81 MG ENTERIC TABLET PO SCH (20:03)
[2025-02-26] MEDS: ACETAMINOPHEN 500 MG TAB PO SCH (20:03)
[2025-02-26] MEDS: SENNA 8.6 MG TAB PO SCH (20:03)
[2025-02-26] MEDS: DOCUSATE SODIUM 100 MG CAPSULE PO SCH (20:03)
[2025-02-27 04:00] VITALS: BP 103/57; TEMP 97.5; O2SAT 95
[2025-02-27 08:37] LABS: BASO # 0.0 10^3/uL (0.0-0.2); BASO % 0.6 % (0.0-1.0); EOS # 0.2 10^3/uL (0.0-0.5); EOS % 4.5 % (0.0-3.0); LYMPH # 0.5 10^3/uL (1.5-5.0); LYMPH % 10.0 % (24.0-44.0); MONO # 0.5 10^3/uL (0.0-0.8); MONO % 9.8 % (2.0-8.0); NEUTROPHILS # 3.5 10^3/uL (1.5-8.5); NEUTROPHILS % 74.5 % (36.0-66.0); PLATELET COUNT, AUTOMATED 178 10^3/uL (150-450)
[2025-02-27 08:56] LABS: CALCIUM LEVEL 9.1 MG/DL (8.3-10.6); CARBON DIOXIDE LEVEL 31.0 MMOL/L (20-31); CHLORIDE LEVEL 105.0 MMOL/L (98-107); CREATININE FOR GFR 0.79 MG/DL (0.55-1.30); GLOMERULAR FILTRATION RATE 78.4 (>39); POTASSIUM SERUM 3.7 MMOL/L (3.5-5.1); SODIUM LEVEL 144.0 MMOL/L (136-145)
[2025-02-27] MEDS: MIRALAX *UNIT DOSE* 17 GM PACKET PO SCH (09:00)
[2025-02-27] MEDS: CEFDINIR 300 MG CAP PO SCH (10:15)
[2025-02-27] MEDS: FERROUS SULFATE 325 MG TAB PO SCH (10:15)
[2025-02-27 11:54] VITALS: BP 105/66; TEMP 97.6; O2SAT 91
[2025-02-27 20:00] VITALS: BP 102/56; TEMP 98.3; O2SAT 95
[2025-02-27] MEDS: ENOXAPARIN 40 MG/0.4 ML SYRINGE (J1650 PER 10MG) SC SCH (20:51)
[2025-02-27] MEDS: clonazePAM 0.5 MG TAB PO PRN (20:51)
[2025-02-28 04:00] VITALS: BP 106/64; TEMP 96.8; O2SAT 99
[2025-02-28 07:46] LABS: BASO # 0.0 10^3/uL (0.0-0.2); BASO % 0.5 % (0.0-1.0); EOS # 0.2 10^3/uL (0.0-0.5); EOS % 4.3 % (0.0-3.0); LYMPH # 0.5 10^3/uL (1.5-5.0); LYMPH % 12.3 % (24.0-44.0); MONO # 0.5 10^3/uL (0.0-0.8); MONO % 10.7 % (2.0-8.0); NEUTROPHILS # 3.1 10^3/uL (1.5-8.5); NEUTROPHILS % 71.5 % (36.0-66.0); PLATELET COUNT, AUTOMATED 210 10^3/uL (150-450)
[2025-02-28 08:11] LABS: CALCIUM LEVEL 9.5 MG/DL (8.3-10.6); CARBON DIOXIDE LEVEL 32 MMOL/L (20-31); CHLORIDE LEVEL 105 MMOL/L (98-107); CREATININE FOR GFR 0.70 MG/DL (0.55-1.30); GLOMERULAR FILTRATION RATE > 90.0 (>39); MAGNESIUM LEVEL 1.5 MG/DL (1.8-2.4); POTASSIUM SERUM 3.6 MMOL/L (3.5-5.1); SODIUM LEVEL 144 MMOL/L (136-145)
[2025-02-28] MEDS: MIDODRINE 2.5 MG TAB PO SCH (12:00)
[2025-02-28 12:13] VITALS: BP 106/66; TEMP 98.6; O2SAT 96
[2025-02-28] MEDS: POTASSIUM CHLORIDE 10MEQ SR TABLET PO ONE (14:24)
[2025-02-28] MEDS: MAG SULF 1GM/100ML (MAG RUN) 1 GM in IV 1 EA IV SCH (14:25)
[2025-02-28] MEDS: MAGNESIUM OXIDE 400 MG TAB PO SCH (15:22)
[2025-02-28 20:02] VITALS: BP 94/62; TEMP 97.6; O2SAT 97
[2025-03-01 03:26] VITALS: BP 100/61; TEMP 97.4; O2SAT 92
[2025-03-01 12:23] VITALS: BP_SYST 100; BP_SYST 110; BP_SYST 95; BP_DIAS 63; BP_DIAS 65; BP_DIAS 67; TEMP 97.6
[2025-03-01 20:03] VITALS: BP 109/65; TEMP 97.6; O2SAT 93
[2025-03-02 03:32] VITALS: BP 108/63; TEMP 97.1; O2SAT 92
[2025-03-02 11:56] VITALS: BP 95/56; TEMP 98.8; O2SAT 94
[2025-03-02] MEDS: MIDODRINE 5 MG TAB PO SCH (12:49)
[2025-03-02 20:00] VITALS: BP 99/49; TEMP 98.7; O2SAT 94
[2025-03-03 04:00] VITALS: BP 97/55; TEMP 97.4; O2SAT 90
[2025-03-03 12:00] VITALS: BP 115/65; TEMP 99.3; O2SAT 94
[2025-03-03 20:00] VITALS: BP 90/60; TEMP 98.7; O2SAT 95
[2025-03-04 04:00] VITALS: BP 106/55; TEMP 99.5; O2SAT 93
[2025-03-04 11:48] VITALS: BP 93/58; TEMP 99.7; O2SAT 95
[2025-03-04 19:45] VITALS: BP 115/74; TEMP 98.4; O2SAT 92
[2025-03-05 04:00] VITALS: BP 97/62; TEMP 99; O2SAT 91
[2025-03-05 12:00] VITALS: BP 102/55; TEMP 99.1; O2SAT 96
[2025-03-05 13:01] LABS: BASO # 0.0 10^3/uL (0.0-0.2); BASO % 0.5 % (0.0-1.0); EOS # 0.1 10^3/uL (0.0-0.5); EOS % 1.1 % (0.0-3.0); LYMPH # 0.5 10^3/uL (1.5-5.0); LYMPH % 7.3 % (24.0-44.0); MONO # 0.4 10^3/uL (0.0-0.8); MONO % 6.8 % (2.0-8.0); NEUTROPHILS # 5.2 10^3/uL (1.5-8.5); NEUTROPHILS % 83.7 % (36.0-66.0); PLATELET COUNT, AUTOMATED 440 10^3/uL (150-450)
[2025-03-05 13:23] LABS: CALCIUM LEVEL 8.5 MG/DL (8.3-10.6); CARBON DIOXIDE LEVEL 30.0 MMOL/L (20-31); CHLORIDE LEVEL 99.0 MMOL/L (98-107); CREATININE FOR GFR 0.82 MG/DL (0.55-1.30); GLOMERULAR FILTRATION RATE 75.0 (>39); POTASSIUM SERUM 4.1 MMOL/L (3.5-5.1); SODIUM LEVEL 139.0 MMOL/L (136-145)
[2025-03-05] MEDS: TORSEMIDE 20 MG TAB PO ONE (14:11)
[2025-03-05] MEDS ORDERED: OXYC-517 PO (14:48)
[2025-03-05] MEDS ORDERED: MIDO5TA PO (14:48)
[2025-03-05] MEDS ORDERED: ASPI81TA26 PO (14:48)
[2025-03-05] MEDS ORDERED: ACET-683 PO (14:48)
[2025-03-05] MEDS ORDERED: TORS20TA2 PO (14:52)
[2025-03-05 19:29] VITALS: BP 106/58; TEMP 97.1; O2SAT 93
[2025-03-05] MEDS: HEPARIN SOD 5000 UNITS/ML 1 ML VIAL/SYRINGE SQ SCH (20:39)
[2025-03-06 03:32] VITALS: BP 102/60; TEMP 96.9; O2SAT 90
[2025-03-06 05:39] VITALS: BP 102/60
[2025-03-06] MEDS: MIDODRINE 5 MG TAB PO SCH (05:39)
[2025-03-06 12:00] VITALS: BP 98/55; TEMP 97.1; O2SAT 93
== END 2025-03-06 12:45 | disposition home or self-care (01) | DRG 560 ==
LOC: M PM&R 14:00
PROVIDERS: ADMIT Physical Medicine & Rehabilitation; ATTEND Physical Medicine & Rehabilitation
DX: S72.092D Other fracture of head and neck of left femur, subsequent encounter for closed fracture with routine healing (principal); J44.1 Chronic obstructive pulmonary disease with (acute) exacerbation; D62 Acute posthemorrhagic anemia; K58.9 Irritable bowel syndrome, unspecified; F50.9 Eating disorder, unspecified; I35.8 Other nonrheumatic aortic valve disorders; M19.90 Unspecified osteoarthritis, unspecified site; D50.9 Iron deficiency anemia, unspecified; F41.9 Anxiety disorder, unspecified; F32.A Depression, unspecified; E87.6 Hypokalemia; E83.42 Hypomagnesemia; K59.00 Constipation, unspecified; I95.1 Orthostatic hypotension; R60.0 Localized edema; Z74.09 Other reduced mobility; Z74.1 Need for assistance with personal care; Z96.642 Presence of left artificial hip joint; Z87.891 Personal history of nicotine dependence; Z86.73 Personal history of transient ischemic attack (TIA), and cerebral infarction without residual deficits; Z95.2 Presence of prosthetic heart valve; Z79.82 Long term (current) use of aspirin; Z79.899 Other long term (current) drug therapy; Z88.5 Allergy status to narcotic agent

== ENCOUNTER → 2025-03-09 | Outpatient (CLI) | payer MEDICARE, OTHER ==
[~2025-03-09] MED LIST changes: +MIDO5TA PO; +TORS20TA2 PO
== END ==
LOC: M SOG 06:50
PROVIDERS: ATTEND Orthopaedic Surgery
DX: Z47.89 Encounter for other orthopedic aftercare (principal)

== ENCOUNTER → 2025-04-17 | Outpatient (RCR) | payer MEDICARE, OTHER | LOC: M PT 03-22 09:14 | PROVIDERS: ATTEND Orthopaedic Surgery | DX: Z47.89 Encounter for other orthopedic aftercare (principal); Z96.642 Presence of left artificial hip joint ==

== ENCOUNTER → 2025-04-20 | Outpatient (CLI) | payer MEDICARE, OTHER | LOC: M SOG 07:19 | PROVIDERS: ATTEND Orthopaedic Surgery | DX: S72.002D Fracture of unspecified part of neck of left femur, subsequent encounter for closed fracture with routine healing (principal); Z96.642 Presence of left artificial hip joint ==

== ENCOUNTER 2025-04-26 09:09 | Outpatient (RCR) | payer MEDICARE, OTHER ==
[2025-05-02] MEDS ORDERED: ASCO50TA PO (16:21)
[2025-05-02] MEDS ORDERED: POTA1TAB23 PO (16:30)
[2025-05-02] MEDS ORDERED: CYAN500T20 PO (16:30)
[2025-05-02] MEDS ORDERED: ACET-861 PO (16:30)
[2025-05-02] MEDS ORDERED: CLON0.5T2 PO (16:30)
[2025-05-02] MEDS ORDERED: TORS20TA2 PO (16:30)
[2025-05-02] MEDS ORDERED: CALC500T38 PO (16:30)
[2025-05-02] MEDS ORDERED: CITA40TA7 PO (16:30)
[2025-05-02] MEDS ORDERED: OMEP40CA5 PO (16:30)
== END 2025-05-18 ==
LOC: M PT 09:09
PROVIDERS: ATTEND Orthopaedic Surgery
DX: Z47.89 Encounter for other orthopedic aftercare (principal)

== ENCOUNTER 2025-05-02 12:21 | Emergency (ER) | payer MEDICARE, OTHER ==
[~2025-05-02] VITALS: Ht 160 cm; Wt 39.1 kg
[2025-05-02 13:21] LABS: BASO # 0.0 10^3/uL (0.0-0.2); BASO % 0.8 % (0.0-1.0); EOS # 0.0 10^3/uL (0.0-0.5); EOS % 0.3 % (0.0-3.0); LYMPH # 0.5 10^3/uL (1.5-5.0); LYMPH % 13.4 % (24.0-44.0); MONO # 0.3 10^3/uL (0.0-0.8); MONO % 8.3 % (2.0-8.0); NEUTROPHILS # 2.9 10^3/uL (1.5-8.5); NEUTROPHILS % 76.7 % (36.0-66.0); PLATELET COUNT, AUTOMATED 264 10^3/uL (150-450)
[2025-05-02 13:37] LABS: CK-MB VALUE MASS 3.8 NG/ML (<3.6)
[2025-05-02 13:38] LABS: CALCIUM LEVEL 9.5 MG/DL (8.3-10.6); CARBON DIOXIDE LEVEL 23.0 MMOL/L (20-31); CHLORIDE LEVEL 105.0 MMOL/L (98-107); CPK CREATINE PHOSPHOKINASE 81.0 U/L (34-145); CREATININE FOR GFR 0.85 MG/DL (0.55-1.30); GLOMERULAR FILTRATION RATE 71.4 (>39); MB/CK RELATIVE INDEX 4.69 (< OR =4); POTASSIUM SERUM 3.9 MMOL/L (3.5-5.1); SODIUM LEVEL 139.0 MMOL/L (136-145)
[2025-05-02 15:02] LABS: IRON (FE) 7.0 UG/DL (50-170); PERCENT SATURATION 1.8 % (13.2-45.0)
[2025-05-02 16:00] VITALS: BP 109/59; TEMP 98.9; O2SAT 100
[2025-05-02 16:15] VITALS: BP 112/61; TEMP 99; O2SAT 100
[2025-05-02] MEDS ORDERED: ASCO50TA PO (16:21)
[2025-05-02] MEDS ORDERED: CALC500T38 PO (16:30)
[2025-05-02] MEDS ORDERED: CITA40TA7 PO (16:30)
[2025-05-02] MEDS ORDERED: OMEP40CA5 PO (16:30)
[2025-05-02] MEDS ORDERED: CLON0.5T2 PO (16:30)
[2025-05-02] MEDS ORDERED: TORS20TA2 PO (16:30)
[2025-05-02] MEDS ORDERED: ACET-861 PO (16:30)
[2025-05-02] MEDS ORDERED: POTA1TAB23 PO (16:30)
[2025-05-02] MEDS ORDERED: CYAN500T20 PO (16:30)
[2025-05-02] MEDS ORDERED: HOME MED LIST COMPLETE! XX SCH (16:35)
[2025-05-02 17:15] VITALS: BP 126/60; TEMP 98.9; O2SAT 100
[2025-05-02 18:28] VITALS: BP 131/56; TEMP 99.1; O2SAT 100
== END 2025-05-02 18:30 | disposition home or self-care (01) ==
LOC: M ED 12:21
DX: D64.9 Anemia, unspecified (principal); J44.9 Chronic obstructive pulmonary disease, unspecified; Z87.891 Personal history of nicotine dependence; Z88.5 Allergy status to narcotic agent; Z79.1 Long term (current) use of non-steroidal anti-inflammatories (NSAID); Z79.899 Other long term (current) drug therapy
CPT/HCPCS: 36415; 36430; 80048; 82550; 82553; 82728; 83550; 84484; 85025; 85046; 86850; 86900; 86901; 86920; 93005; 99285; P9016

== ENCOUNTER → 2025-05-03 | Outpatient (CLI) | payer MEDICARE, OTHER ==
[~2025-05-03] MED LIST changes: +ACET-861 PO; +CALC500T38 PO; +CITA40TA7 PO; +CLON0.5T2 PO; +CYAN500T20 PO; +OMEP40CA5 PO; +POTA1TAB23 PO
== END ==
LOC: M SOG 07:14
PROVIDERS: ATTEND Orthopaedic Surgery
DX: S72.002D Fracture of unspecified part of neck of left femur, subsequent encounter for closed fracture with routine healing (principal); Z96.642 Presence of left artificial hip joint; W18.30XD Fall on same level, unspecified, subsequent encounter

== ENCOUNTER 2025-05-17 11:26 | Inpatient (IN) | payer MEDICARE, OTHER ==
[2025-05-17] VITALS (7 sets, daily range): BP systolic 88–119; BP diastolic 56–69; TEMP 97–100.2; O2SAT 95–100
[~2025-05-17] VITALS: Ht 160 cm; Wt 41.0 kg
[2025-05-17] MEDS: MORPHINE 4 MG/ML 1 ML VIAL IV ONE (12:35)
[2025-05-17 12:49] LABS: BASO # 0.0 10^3/uL (0.0-0.2); BASO % 0.4 % (0.0-1.0); EOS # 0.0 10^3/uL (0.0-0.5); EOS % 0.0 % (0.0-3.0); LYMPH # 0.2 10^3/uL (1.5-5.0); LYMPH % 2.6 % (24.0-44.0); MONO # 0.3 10^3/uL (0.0-0.8); MONO % 3.9 % (2.0-8.0); NEUTROPHILS # 7.9 10^3/uL (1.5-8.5); NEUTROPHILS % 92.7 % (36.0-66.0); PLATELET COUNT, AUTOMATED 253 10^3/uL (150-450)
[2025-05-17 13:15] LABS: IRON (FE) 293.0 UG/DL (50-170); PERCENT SATURATION 86.2 % (13.2-45.0)
[2025-05-17 13:20] LABS: ALT/SGPT 27.0 U/L (7.0-40); AST/SGOT 77.0 U/L (<34); CALCIUM LEVEL 9.4 MG/DL (8.3-10.6); CARBON DIOXIDE LEVEL 23.0 MMOL/L (20-31); CHLORIDE LEVEL 107.0 MMOL/L (98-107); CREATININE FOR GFR 0.95 MG/DL (0.55-1.30); GLOMERULAR FILTRATION RATE 62.5 (>39); POTASSIUM SERUM 6.0 MMOL/L (3.5-5.1); SODIUM LEVEL 141.0 MMOL/L (136-145)
[2025-05-17 13:24] LABS: INR 1.06
[2025-05-17] MEDS: MORPHINE 4 MG/ML 1 ML VIAL IV PRN (13:46)
[2025-05-17] MEDS ORDERED: HOME MED LIST COMPLETE! XX SCH (14:15)
[2025-05-17] MEDS ORDERED: MOM 30 ML SUSPENSION UDC PO PRN (14:25)
[2025-05-17] MEDS ORDERED: MAALOX 30 ML SUSP *UDC PO PRN (14:25)
[2025-05-17] MEDS ORDERED: ROCURONIUM BROMIDE 50MG/5ML VIAL As Ordered ONE (15:53)
[2025-05-17] MEDS ORDERED: dexmedeTOMIDine (4 MCG/ML) 200 MCG/50 ML BTL As Ordered ONE (15:54)
[2025-05-17] MEDS ORDERED: SUGAMMADEX SODIUM 200 MG/2 ML VIAL As Ordered ONE (15:54)
[2025-05-17] MEDS ORDERED: MIDAZOLAM INJ 2 MG/2 ML VIAL As Ordered ONE (16:19)
[2025-05-17] MEDS ORDERED: HYDROmorphone HCL 2 MG/ML 1 ML VIAL As Ordered ONE (18:06)
[2025-05-17] MEDS ORDERED: PHENYLephrine 500MCG 5ML (100MCG/ML) SYRINGE As Ordered ONE (18:07)
[2025-05-17] MEDS: ONDANSETRON 4MG/2ML VIAL IV ONE (20:03)
[2025-05-17] MEDS: clonazePAM 0.5 MG TAB PO SCH (20:07)
[2025-05-17] MEDS: ACETAMINOPHEN 325 MG TAB PO PRN (20:08)
[2025-05-17] MEDS: DOCUSATE SODIUM 100 MG CAPSULE PO SCH (20:09)
[2025-05-17] MEDS: MIRTAZAPINE 15 MG TAB PO SCH (20:09)
[2025-05-17] MEDS: ASPIRIN 81 MG ENTERIC TABLET PO SCH (20:09)
[2025-05-17] MEDS: ceFAZolin SODIUM 2 GM in DEXTROSE 5% (D5W) ADV/MINI-BAG 50 ML IV SCH (23:31)
[2025-05-18] VITALS (12 sets, daily range): BP systolic 88–100; BP diastolic 53–58; TEMP 97–97.7; O2SAT 90–98
[2025-05-18 06:30] LABS: BASO # 0.0 10^3/uL (0.0-0.2); BASO % 0.2 % (0.0-1.0); EOS # 0.0 10^3/uL (0.0-0.5); EOS % 0.0 % (0.0-3.0); LYMPH # 0.4 10^3/uL (1.5-5.0); LYMPH % 3.2 % (24.0-44.0); MONO # 0.8 10^3/uL (0.0-0.8); MONO % 7.0 % (2.0-8.0); NEUTROPHILS # 9.8 10^3/uL (1.5-8.5); NEUTROPHILS % 88.7 % (36.0-66.0); PLATELET COUNT, AUTOMATED 231 10^3/uL (150-450)
[2025-05-18 06:49] LABS: CALCIUM LEVEL 8.7 MG/DL (8.3-10.6); CARBON DIOXIDE LEVEL 27.0 MMOL/L (20-31); CHLORIDE LEVEL 103.0 MMOL/L (98-107); CREATININE FOR GFR 1.48 MG/DL (0.55-1.30); GLOMERULAR FILTRATION RATE 36.7 (>39); MAGNESIUM LEVEL 1.7 MG/DL (1.8-2.4); POTASSIUM SERUM 4.4 MMOL/L (3.5-5.1); SODIUM LEVEL 140.0 MMOL/L (136-145)
[2025-05-18] MEDS: NS (Normal Saline) 0.9% 1,000 ML IV SCH (08:05)
[2025-05-18] MEDS: OMEPRAZOLE 20MG CAP PO SCH (08:23)
[2025-05-18] MEDS: MAG SULF 1GM/100ML (MAG RUN) 1 GM in IV 1 EA IV SCH (09:35)
[2025-05-18] MEDS: HEPARIN SOD 5000 UNITS/ML 1 ML VIAL/SYRINGE SQ SCH (11:09)
[2025-05-19] VITALS (11 sets, daily range): BP systolic 91–106; BP diastolic 20–63; TEMP 97.5–98; O2SAT 91–95
[2025-05-19 06:36] LABS: BASO # 0.0 10^3/uL (0.0-0.2); BASO % 0.6 % (0.0-1.0); EOS # 0.1 10^3/uL (0.0-0.5); EOS % 1.0 % (0.0-3.0); LYMPH # 0.5 10^3/uL (1.5-5.0); LYMPH % 8.4 % (24.0-44.0); MONO # 0.6 10^3/uL (0.0-0.8); MONO % 8.9 % (2.0-8.0); NEUTROPHILS # 5.0 10^3/uL (1.5-8.5); NEUTROPHILS % 80.5 % (36.0-66.0); PLATELET COUNT, AUTOMATED 154 10^3/uL (150-450)
[2025-05-19 07:02] LABS: CALCIUM LEVEL 8.4 MG/DL (8.3-10.6); CARBON DIOXIDE LEVEL 24.0 MMOL/L (20-31); CHLORIDE LEVEL 107.0 MMOL/L (98-107); CREATININE FOR GFR 1.09 MG/DL (0.55-1.30); GLOMERULAR FILTRATION RATE 53.0 (>39); MAGNESIUM LEVEL 1.9 MG/DL (1.8-2.4); POTASSIUM SERUM 4.1 MMOL/L (3.5-5.1); SODIUM LEVEL 141.0 MMOL/L (136-145)
[2025-05-19] MEDS ORDERED: MIRALAX *UNIT DOSE* 17 GM PACKET PO PRN (09:05)
[2025-05-20 05:08] VITALS: BP 111/65; TEMP 97.5; O2SAT 93
[2025-05-20 06:46] LABS: BASO # 0.0 10^3/uL (0.0-0.2); BASO % 0.6 % (0.0-1.0); EOS # 0.2 10^3/uL (0.0-0.5); EOS % 2.9 % (0.0-3.0); LYMPH # 0.6 10^3/uL (1.5-5.0); LYMPH % 8.9 % (24.0-44.0); MONO # 0.5 10^3/uL (0.0-0.8); MONO % 8.4 % (2.0-8.0); NEUTROPHILS # 4.9 10^3/uL (1.5-8.5); NEUTROPHILS % 77.9 % (36.0-66.0); PLATELET COUNT, AUTOMATED 160 10^3/uL (150-450)
[2025-05-20 07:14] LABS: CALCIUM LEVEL 8.7 MG/DL (8.3-10.6); CARBON DIOXIDE LEVEL 24.0 MMOL/L (20-31); CHLORIDE LEVEL 107.0 MMOL/L (98-107); CREATININE FOR GFR 1.01 MG/DL (0.55-1.30); GLOMERULAR FILTRATION RATE 58.1 (>39); MAGNESIUM LEVEL 1.7 MG/DL (1.8-2.4); POTASSIUM SERUM 4.0 MMOL/L (3.5-5.1); SODIUM LEVEL 142.0 MMOL/L (136-145)
[2025-05-20 07:29] VITALS: BP 112/64
[2025-05-20] MEDS: MAG SULF 1GM/100ML (MAG RUN) 1 GM in IV 1 EA IV ONE (08:58)
[2025-05-20 09:00] VITALS: BP_SYST 103; BP_SYST 104; BP_SYST 105; BP_DIAS 59; BP_DIAS 60; BP_DIAS 61
[2025-05-20] MEDS ORDERED: clonazePAM 0.5 MG TAB PO PRN (10:25)
[2025-05-20] MEDS: clonazePAM 0.5 MG TAB PO SCH (11:01)
[2025-05-20 12:00] VITALS: BP 102/59; TEMP 97.5; O2SAT 99
[2025-05-20] MEDS ORDERED: FERRIC CARBOXYMALTOSE INJ 750 MG, VIAL MATE ADAPTER 1 EACH in NS 100 ML IV ONE (12:00)
[2025-05-20] MEDS: NS IV ONE (15:28)
[2025-05-20] MEDS: FERRIC CARBOXYMALTOSE IV ONE (15:28)
[2025-05-20 20:02] VITALS: BP 99/60; TEMP 97.7; O2SAT 93
[2025-05-21 04:03] VITALS: BP 100/61; TEMP 97.9; O2SAT 92
[2025-05-21 06:47] LABS: BASO # 0.1 10^3/uL (0.0-0.2); BASO % 0.9 % (0.0-1.0); EOS # 0.3 10^3/uL (0.0-0.5); EOS % 4.7 % (0.0-3.0); LYMPH # 0.5 10^3/uL (1.5-5.0); LYMPH % 9.4 % (24.0-44.0); MONO # 0.6 10^3/uL (0.0-0.8); MONO % 11.1 % (2.0-8.0); NEUTROPHILS # 3.9 10^3/uL (1.5-8.5); NEUTROPHILS % 72.4 % (36.0-66.0); PLATELET COUNT, AUTOMATED 178 10^3/uL (150-450)
[2025-05-21 07:18] LABS: CALCIUM LEVEL 8.6 MG/DL (8.3-10.6); CARBON DIOXIDE LEVEL 26.0 MMOL/L (20-31); CHLORIDE LEVEL 107.0 MMOL/L (98-107); CREATININE FOR GFR 0.83 MG/DL (0.55-1.30); GLOMERULAR FILTRATION RATE 73.5 (>39); MAGNESIUM LEVEL 1.6 MG/DL (1.8-2.4); POTASSIUM SERUM 3.8 MMOL/L (3.5-5.1); SODIUM LEVEL 142.0 MMOL/L (136-145)
[2025-05-21] MEDS: MAGNESIUM OXIDE 400 MG TAB PO SCH (09:01)
[2025-05-21] MEDS: MAG SULF 1GM/100ML (MAG RUN) 1 GM in IV 1 EA IV SCH (09:03)
[2025-05-21] MEDS ORDERED: MIRA33506 PO (10:22)
[2025-05-21] MEDS ORDERED: MAGN400T33 PO (10:22)
[2025-05-21] MEDS ORDERED: HEPA500023 SQ (10:22)
[2025-05-21] MEDS ORDERED: MOM30SS2 PO (10:22)
[2025-05-21] MEDS ORDERED: OXYC-517 PO (10:22)
[2025-05-21 11:42] VITALS: O2SAT 94
[2025-05-21 12:00] VITALS: BP 101/61; TEMP 97.5; O2SAT 92
== END 2025-05-21 15:01 | DRG 481 ==
LOC: EDBD 11:26 → M ED 11:26 → M ED INP 14:23 → M MSPAV 18:51
PROVIDERS: ADMIT Internal Medicine; ATTEND Internal Medicine
PROC: 30233N1 Transfusion of Nonautologous Red Blood Cells into Peripheral Vein, Percutaneous Approach (ICD-10-PCS; 2025-05-17)
PROC: 0QS636Z Reposition Right Upper Femur with Intramedullary Internal Fixation Device, Percutaneous Approach (ICD-10-PCS; principal; 2025-05-17 15:00)
DX: S72.141A Displaced intertrochanteric fracture of right femur, initial encounter for closed fracture (principal); N17.9 Acute kidney failure, unspecified; J44.9 Chronic obstructive pulmonary disease, unspecified; K58.9 Irritable bowel syndrome, unspecified; F50.9 Eating disorder, unspecified; M19.90 Unspecified osteoarthritis, unspecified site; D50.9 Iron deficiency anemia, unspecified; F41.9 Anxiety disorder, unspecified; F32.A Depression, unspecified; E87.5 Hyperkalemia; K21.9 Gastro-esophageal reflux disease without esophagitis; E83.42 Hypomagnesemia; R42 Dizziness and giddiness; W18.30XA Fall on same level, unspecified, initial encounter; Y92.013 Bedroom of single-family (private) house as the place of occurrence of the external cause; Y93.89 Activity, other specified; Y99.8 Other external cause status; Z95.2 Presence of prosthetic heart valve; Z86.73 Personal history of transient ischemic attack (TIA), and cerebral infarction without residual deficits; Z79.82 Long term (current) use of aspirin; Z79.899 Other long term (current) drug therapy; Z87.891 Personal history of nicotine dependence; Z88.5 Allergy status to narcotic agent

== ENCOUNTER 2025-05-21 10:43 | Inpatient (IN) | payer MEDICARE, OTHER ==
[~2025-05-21] VITALS: Ht 160 cm; Wt 40.0 kg
[~2025-05-21 10:43] MED LIST changes: +HEPA500023 SQ; +MAGN400T33 PO; +MIRA33506 PO; +MOM30SS2 PO
[2025-05-21] MEDS ORDERED: BISACODYL 10 MG SUPP PR PRN (14:35)
[2025-05-21] MEDS ORDERED: MOM 30 ML SUSPENSION UDC PO PRN (14:35)
[2025-05-21] MEDS ORDERED: ONDANSETRON 4MG ORAL DISINTEGRATING TAB PO PRN (14:35)
[2025-05-21] MEDS ORDERED: BISACODYL 5 MG TAB PO PRN (14:35)
[2025-05-21] MEDS ORDERED: MAALOX 30 ML SUSP *UDC PO PRN (14:35)
[2025-05-21] MEDS ORDERED: SIMETHICONE 80MG CHEW TAB PO PRN (14:35)
[2025-05-21 15:25] VITALS: BP 100/62; TEMP 99.1; O2SAT 95
[2025-05-21] MEDS: clonazePAM 0.5 MG TAB PO SCH (16:39)
[2025-05-21 20:00] VITALS: BP 93/58; TEMP 98.7; O2SAT 96
[2025-05-21] MEDS: DOCUSATE SODIUM 100 MG CAPSULE PO SCH (21:00)
[2025-05-21] MEDS: CYANOCOBALAMIN 500 MCG TAB PO SCH (21:04)
[2025-05-21] MEDS: ACETAMINOPHEN 500 MG TAB PO SCH (21:04)
[2025-05-21] MEDS: MIRTAZAPINE 15 MG TAB PO SCH (21:04)
[2025-05-21] MEDS: POTASSIUM CHLORIDE 10MEQ SR TABLET PO SCH (21:04)
[2025-05-21] MEDS: ASPIRIN 81 MG ENTERIC TABLET PO SCH (21:05)
[2025-05-21] MEDS: ASCORBIC ACID 500 MG TAB PO SCH (21:05)
[2025-05-21] MEDS: MAGNESIUM OXIDE 400 MG TAB PO SCH (21:05)
[2025-05-21] MEDS: HEPARIN SOD 5000 UNITS/ML 1 ML VIAL/SYRINGE SQ SCH (21:06)
[2025-05-22 04:00] VITALS: BP 98/57; TEMP 98.3; O2SAT 94
[2025-05-22 06:26] LABS: BASO # 0.0 10^3/uL (0.0-0.2); BASO % 0.9 % (0.0-1.0); EOS # 0.2 10^3/uL (0.0-0.5); EOS % 5.3 % (0.0-3.0); LYMPH # 0.5 10^3/uL (1.5-5.0); LYMPH % 12.0 % (24.0-44.0); MONO # 0.6 10^3/uL (0.0-0.8); MONO % 13.1 % (2.0-8.0); NEUTROPHILS # 2.9 10^3/uL (1.5-8.5); NEUTROPHILS % 66.9 % (36.0-66.0); PLATELET COUNT, AUTOMATED 183 10^3/uL (150-450)
[2025-05-22 06:50] LABS: ALT/SGPT < 9 U/L (7.0-40); AST/SGOT 26 U/L (<34); CALCIUM LEVEL 8.6 MG/DL (8.3-10.6); CARBON DIOXIDE LEVEL 27 MMOL/L (20-31); CHLORIDE LEVEL 108 MMOL/L (98-107); CREATININE FOR GFR 0.84 MG/DL (0.55-1.30); GLOMERULAR FILTRATION RATE 72.4 (>39); POTASSIUM SERUM 4.6 MMOL/L (3.5-5.1); SODIUM LEVEL 144 MMOL/L (136-145)
[2025-05-22] MEDS: OMEPRAZOLE 20MG CAP PO SCH (09:22)
[2025-05-22 12:00] VITALS: BP 91/54; TEMP 98.6; O2SAT 99
[2025-05-22 20:00] VITALS: BP 99/59; TEMP 98.9; O2SAT 94
[2025-05-23 04:00] VITALS: BP 100/60; TEMP 99.2; O2SAT 95
[2025-05-23] MEDS ORDERED: FERROUS GLUCONATE 324 MG TAB PO SCH (09:00)
[2025-05-23 12:00] VITALS: BP 106/56; TEMP 97.6; O2SAT 95
[2025-05-23 20:00] VITALS: BP 98/56; TEMP 98.3; O2SAT 96
[2025-05-24 04:00] VITALS: BP 123/56; TEMP 97.7; O2SAT 94
[2025-05-24 06:51] LABS: PLATELET COUNT, AUTOMATED 217 10^3/uL (150-450)
[2025-05-24 07:10] LABS: CALCIUM LEVEL 8.9 MG/DL (8.3-10.6); CARBON DIOXIDE LEVEL 28.0 MMOL/L (20-31); CHLORIDE LEVEL 107.0 MMOL/L (98-107); CREATININE FOR GFR 0.78 MG/DL (0.55-1.30); GLOMERULAR FILTRATION RATE 79.2 (>39); POTASSIUM SERUM 4.4 MMOL/L (3.5-5.1); SODIUM LEVEL 143.0 MMOL/L (136-145)
[2025-05-24 12:00] VITALS: BP 95/56; TEMP 98.8; O2SAT 98
[2025-05-24 20:00] VITALS: BP 97/53; TEMP 99; O2SAT 96
[2025-05-25 04:00] VITALS: BP 105/62; TEMP 97.6; O2SAT 95
[2025-05-25 12:00] VITALS: BP 106/63; TEMP 98.1; O2SAT 97
[2025-05-25 20:00] VITALS: BP 102/57; TEMP 99; O2SAT 91
[2025-05-26 04:00] VITALS: BP 101/55; TEMP 97.5; O2SAT 94
[2025-05-26 12:21] VITALS: BP 98/56; TEMP 98.4; O2SAT 97
[2025-05-26 20:00] VITALS: BP 98/57; TEMP 99.2; O2SAT 97
[2025-05-27 04:00] VITALS: BP 98/58; TEMP 97.1; O2SAT 96
[2025-05-27 12:00] VITALS: BP 113/55; TEMP 97.3; O2SAT 96
[2025-05-27 20:00] VITALS: BP 98/57; TEMP 98.6; O2SAT 96
[2025-05-28 04:00] VITALS: BP 105/58; TEMP 98.7; O2SAT 94
[2025-05-28 12:00] VITALS: BP 100/55; TEMP 98.7; O2SAT 96
[2025-05-28 20:00] VITALS: BP 93/53; TEMP 97.8; O2SAT 97
[2025-05-29 04:00] VITALS: BP 106/59; TEMP 97.2; O2SAT 95
[2025-05-29 11:22] VITALS: BP 102/58
[2025-05-29] MEDS: TORSEMIDE 20 MG TAB PO ONE (11:22)
[2025-05-29 12:00] VITALS: BP 102/58; TEMP 98.7; O2SAT 100
[2025-05-29] MEDS ORDERED: OXYC-517 PO (17:01)
[2025-05-29 20:00] VITALS: BP 90/57; TEMP 98.6; O2SAT 98
[2025-05-30 04:00] VITALS: BP 104/56; TEMP 96.9; O2SAT 98
== END 2025-05-30 10:30 | disposition home or self-care (01) | DRG 561 ==
LOC: M PM&R 15:20
PROVIDERS: ADMIT Physical Medicine & Rehabilitation; ATTEND Physical Medicine & Rehabilitation
DX: S72.141D Displaced intertrochanteric fracture of right femur, subsequent encounter for closed fracture with routine healing (principal); J44.9 Chronic obstructive pulmonary disease, unspecified; K58.9 Irritable bowel syndrome, unspecified; M19.90 Unspecified osteoarthritis, unspecified site; D50.9 Iron deficiency anemia, unspecified; F41.9 Anxiety disorder, unspecified; F32.A Depression, unspecified; Z74.1 Need for assistance with personal care; F50.9 Eating disorder, unspecified; Z74.09 Other reduced mobility; I95.1 Orthostatic hypotension; K21.9 Gastro-esophageal reflux disease without esophagitis; E87.6 Hypokalemia; K59.00 Constipation, unspecified; Z79.82 Long term (current) use of aspirin; Z79.899 Other long term (current) drug therapy; Z88.5 Allergy status to narcotic agent; Z87.891 Personal history of nicotine dependence; Z95.2 Presence of prosthetic heart valve; Z86.73 Personal history of transient ischemic attack (TIA), and cerebral infarction without residual deficits

== ENCOUNTER → 2025-06-06 | Outpatient (CLI) | payer MEDICARE, OTHER | LOC: M SOG 07:36 | PROVIDERS: ATTEND Physician Assistant | DX: S72.141A Displaced intertrochanteric fracture of right femur, initial encounter for closed fracture (principal); W18.30XA Fall on same level, unspecified, initial encounter; Y92.009 Unspecified place in unspecified non-institutional (private) residence as the place of occurrence of the external cause ==

== ENCOUNTER 2025-06-12 07:43 | Outpatient (RCR) | payer MEDICARE, OTHER | END 2025-06-17 | LOC: M PT 07:43 | PROVIDERS: ATTEND Physical Medicine & Rehabilitation | DX: S72.001A Fracture of unspecified part of neck of right femur, initial encounter for closed fracture (principal); X58.XXXA Exposure to other specified factors, initial encounter; Y92.9 Unspecified place or not applicable; Y93.9 Activity, unspecified; Y99.9 Unspecified external cause status ==

== ENCOUNTER 2025-07-17 07:35 | Outpatient (RCR) | payer MEDICARE, OTHER | END 2025-07-18 | LOC: M PT 07:35 | PROVIDERS: ATTEND Physical Medicine & Rehabilitation | DX: S72.001A Fracture of unspecified part of neck of right femur, initial encounter for closed fracture (principal) ==